=== PATIENT | male | born 1955 | race Caucasian/White ===

== ENCOUNTER 2016-06-22 12:56 | Observation (INO) | payer MEDICARE ==
[2016-06-22] VITALS (7 sets, daily range): BP systolic 146–173; BP diastolic 64–76; PULSE 58–80; RESP 12–18; TEMP 97.5–98.7; O2SAT 90–99
[~2016-06-22] VITALS: Ht 180.3 cm; Wt 70.0 kg
[~2016-06-22 12:56] MED LIST: AMLO5TAB96 PO; FOLI1 PO; LOSA50TA PO; MORP60TA PO; SIMV20 PO; TEST200I13 IM; VITA100020 IM
[2016-06-22 13:33] LABS: MEAN CORPUSCULAR HGB CONC 29.1 % (32.0-36.0)
--- NOTE | 2016-06-22 13:42 | PD ---
HPI Chief Complaint: Abnormal Results Time Seen by Provider: 13:38 Travel History International Travel<30 days: No Contact w/Intl Traveler<30days: No Traveled to known affect area: No History of Present Illness HPI Patient comes in at the advice of his primary care doctor after having found abnormal lab results that were drawn yesterday. Patient reports received a phone call from his doctor today stating that his hemoglobin was 5.9 and to come to the emergency Department. Patient states he has a history of chronic anemia and was taking iron tablets for this but has not took any for couple weeks with exception of taking one yesterday. Patient states had a colonoscopy done by Dr. Buckner 2 weeks ago and was not told anything was abnormal. Patient states this was just a routine colonoscopy secondary to his Crohn's. Patient reports over the past 3+ months he's had intermittent dizziness, shortness breath, weakness in his legs that is unchanged. He states he was instructed by his primary care doctor today to stop taking his methotrexate which patient reports he only takes 2-3 times a week anyway. Patient denies any hematemesis, bright red blood per rectum, melena, or being on any blood thinners. PFSH Past Medical History Arthritis: Yes Depression: Yes Cancer: No Cardiovascular Problems: No Diabetes: No Diminished Hearing: No Endocrine: No Gastrointestinal Disorders: Yes (CROHN'S DISEASE) Genitourinary: Yes (FREQUENT KIDNEY STONES) Hepatitis: No Hiatal Hernia: No Hypertension: Yes Immune Disorder: No Kidney Stones: Yes Musculoskeletal: Yes (ARTHRITIS, BACK, NECK) Neurologic: No Psychiatric: No Respiratory: No Thyroid Disease: No Past Surgical History Abdominal Surgery: Yes (CROHN'S DISEASE WITH RESECTION X 2, ADHESION REMOVAL) Body Medical Devices: BACK WITH CAGE Eye Surgery: Yes (RIGHT EYE CATARACT SX, LEFT EYE REMOVED) Thoracic Surgery: Yes (L4 TO S1 FUSION 2000) Other Surgery: Yes (LEFT EYE SURGERY 1968) Social History Alcohol Use: No Tobacco Use: Yes ( SMOKE A PACK A DAY) Substance Use: No Allergies-Medications (Allergen,Severity, Reaction): Coded Allergies: No Known Allergies (Verified , 06/22/16) Reported Meds & Prescriptions Reported Meds & Active Scripts Active Reported Folate (Folic Acid) 1 Mg Tab 1 Mg PO DAILY Cyanocobalamin Inj (Cyanocobalamin) 1,000 Mcg/Ml Inj 1,000 Mcg IM Q30D Testosterone Cypionate Inj (Testosterone Cypionate) 200 Mg/Ml Inj 200 Mg IM Q14D Probiotic (Lactobacillus Acidophilus) 1 Cap Cap 1 Cap PO DAILY Vitamin D3 (Cholecalciferol) 2,000 Unit Tab 2,000 Units PO DAILY Losartan (Losartan Potassium) 50 Mg Tab 50 Mg PO DAILY Morphine ER (Morphine Sulfate) 60 Mg Tab 60 Mg PO QID Norvasc (Amlodipine Besylate) 10 Mg Tab 10 Mg PO DAILY Zocor (Simvastatin) 20 Mg Tab 20 Mg PO HS Review of Systems Except as stated in HPI: all other systems reviewed are Neg Physical Exam Narrative GENERAL: Well-developed, under nourished, in no acute distress, and non-ill appearing. SKIN: Warm and dry. HEAD: Atraumatic. Normocephalic. EYES: Pupils equal and round. EOMI. No scleral icterus. No injection or drainage. ENT: No nasal bleeding or discharge. Mucous membranes pink and moist. NECK: Trachea midline. Supple. No nuclear rigidity. CARDIOVASCULAR: Regular rate and rhythm. No murmur appreciated. RESPIRATORY: No accessory muscle use. No respiratory distress. Clear to auscultation. Breath sounds equal bilaterally. GASTROINTESTINAL: Abdomen soft, non-tender, nondistended. Hepatic and splenic margins not palpable. Normal bowel sounds 4. No pulsatile mass. MUSCULOSKELETAL: No obvious deformities. No clubbing. No cyanosis. No edema. Full range of motion. NEUROLOGICAL: Awake and alert. No obvious cranial nerve deficits. Motor grossly within normal limits. Normal speech. PSYCHIATRIC: Appropriate mood and affect; insight and judgment normal. Data Data Last Documented VS Vital Signs Date Time Temp Pulse Resp B/P Pulse Ox O2 Delivery O2 Flow Rate FiO2 06/22/16 13:20 80 18 97 Room Air 06/22/16 13:20 161/69 06/22/16 12:58 97.5 Orders Complete Blood Count With Diff (06/22/16 13:31) Comprehensive Metabolic Panel (06/22/16 13:31) Prothrombin Time / Inr (Pt) (06/22/16 13:31) Act Partial Throm Time (Ptt) (06/22/16 13:31) Type And Screen (06/22/16 13:31) Ecg Monitoring (06/22/16 13:31) Iv Access Insert/Monitor (06/22/16 13:31) Oximetry (06/22/16 13:31) Sodium Chloride 0.9% Flush (Ns Flush) (06/22/16 13:45) Red Blood Cells (Rbc) (06/22/16 14:48) Sodium Chloride 0.9% Flush (Ns Flush) (06/22/16 15:00) Labs Laboratory Tests Test 06/22/16 06/22/16 13:50 15:10 White Blood Count 6.2 TH/MM3 Red Blood Count 2.97 MIL/MM3 Hemoglobin 5.8 GM/DL Hematocrit 20.0 % Mean Corpuscular Volume 67.3 FL Mean Corpuscular Hemoglobin 19.6 PG Mean Corpuscular Hemoglobin 29.1 % Concent Red Cell Distribution Width 19.6 % Platelet Count 227 TH/MM3 Mean Platelet Volume 9.5 FL Neutrophils (%) (Auto) 79.3 % Lymphocytes (%) (Auto) 11.4 % Monocytes (%) (Auto) 6.2 % Eosinophils (%) (Auto) 2.5 % Basophils (%) (Auto) 0.6 % Neutrophils # (Auto) 4.9 TH/MM3 Lymphocytes # (Auto) 0.7 TH/MM3 Monocytes # (Auto) 0.4 TH/MM3 Eosinophils # (Auto) 0.2 TH/MM3 Basophils # (Auto) 0.0 TH/MM3 CBC Comment AUTO DIFF Prothrombin Time 11.2 SEC Prothromb Time International 1.0 RATIO Ratio Activated Partial 23.9 SEC Thromboplast Time Sodium Level 140 MEQ/L Potassium Level 4.3 MEQ/L Chloride Level 107 MEQ/L Carbon Dioxide Level 27.0 MEQ/L Anion Gap 6 MEQ/L Blood Urea Nitrogen 19 MG/DL Creatinine 1.55 MG/DL Estimat Glomerular Filtration 46 ML/MIN Rate Random Glucose 99 MG/DL Calcium Level 7.8 MG/DL Total Bilirubin 0.1 MG/DL Aspartate Amino Transf 15 U/L (AST/SGOT) Alanine Aminotransferase 22 U/L (ALT/SGPT) Alkaline Phosphatase 81 U/L Total Protein 5.8 GM/DL Albumin 2.9 GM/DL Blood Type O NEGATIVE Antibody Screen NEGATIVE Crossmatch Leukocyte-Reduced Red Blood Cells Blood Bank Comment MDM Medical Decision Making Medical Screen Exam Complete: Yes Emergency Medical Condition: Yes Differential Diagnosis Severe anemia, anemia, GI bleed, electrolyte abnormality, other Narrative Course Patient seen and examined. Initial laboratory studies were obtained and reviewed. Patient was transfused with 2 units of packed red blood cells. Discussed all findings and plan of care with Dr. Mendez, who is in agreement with plan of care and disposition. Discussed all findings and plan of care with patient and his . Patient was agreeable for admission. All questions were answered. Procedures Procedure Narrative Verbal consent was obtained. Digital rectal exam was performed. Stool specimen applied and test interpreted between 1 and 3 minutes of application and the result was positive. Internal Controls: Both positive and negative controls were validated. is project manager Mariana was present during this exam. Physician Communication Physician Communication [id number] Montgomery, who is agreeable to admit the patient. Diagnosis Primary Impression: Severe anemia Additional Impression: Guaiac + stool Admitting Information Admitting Physician Requests: Admit Condition: Stable Juanito العلي Jun 22, 2016 13:42
[2016-06-22] MEDS ORDERED: SODIUM CHLORIDE 0.9% FLUSH 5 ML FLUSH IVF PRN ×2 (13:45→15:00)
[2016-06-22 14:22] LABS: AUTOMATED NEUTROPHIL # 4.9 TH/MM3 (1.8-7.7); BASOPHIL % 0.6 % (0.0-2.0); EOSINOPHIL # 0.2 TH/MM3 (0-0.4); EOSINOPHIL % 2.5 % (0.0-4.0); LYMPH % 11.4 % (9.0-44.0); LYMPHOCYTE # 0.7 TH/MM3 (1.0-4.8); MEAN CELL VOLUME 67.3 FL (80.0-100.0); MEAN CORPUSCULAR HEMOGLOBIN 19.6 PG (27.0-34.0); MONO % 6.2 % (0.0-8.0); NEUT % 79.3 % (16.0-70.0); PLATELET COUNT 227 TH/MM3 (150-450); RED BLOOD COUNT 2.97 MIL/MM3 (4.50-5.90); RED CELL DISTRIBUTION WIDTH 19.6 % (11.6-17.2); WHITE BLOOD COUNT 6.2 TH/MM3 (4.0-11.0)
[2016-06-22] MEDS ORDERED: MORP1TAB26 PO (14:29)
[2016-06-22] MEDS ORDERED: AMLO10 PO (14:29)
[2016-06-22] MEDS ORDERED: LACTCAP8 PO (14:29)
[2016-06-22] MEDS ORDERED: ZOCO20TA PO (14:29)
[2016-06-22] MEDS ORDERED: VITA200012 PO (14:29)
[2016-06-22] MEDS ORDERED: FOLI1TAB4 PO (14:29)
[2016-06-22] MEDS ORDERED: CYAN1000P IM (14:29)
[2016-06-22] MEDS ORDERED: TEST200I12 IM (14:29)
[2016-06-22] MEDS ORDERED: LOSA50TA PO (14:29)
[2016-06-22 14:30] LABS: HEMO FLAGS AUTO DIFF
[2016-06-22 14:33] LABS: APTT (PATIENT) 23.9 SEC (24.3-30.1); PROTHROMBIN TIME - PATIENT 11.2 SEC (9.8-11.6)
[2016-06-22 14:42] LABS: ALT (GPT) 22 U/L (12-78); ANION GAP 6 MEQ/L (5-15); AST (GOT) 15 U/L (15-37); BLOOD UREA NITROGEN 19 MG/DL (7-18); CHLORIDE 107 MEQ/L (98-107); GLOMERULAR FILTRATION RATE 46 ML/MIN (>89); POTASSIUM 4.3 MEQ/L (3.5-5.1); SODIUM (NA) 140 MEQ/L (136-145)
[2016-06-22 14:44] LABS: ALKALINE PHOSPHATASE 81 U/L (45-117); TOTAL BILIRUBIN ADULT 0.1 MG/DL (0.2-1.0)
[2016-06-22] MEDS ORDERED: METH2.5T PO (15:34)
[2016-06-22] MEDS ORDERED: UMEC1AER INH (15:34)
[2016-06-22 15:36] LABS: SCAN/DIFF AUTO DIFF CONFIRMED; STOMATOCYTES 1+ (NORMAL); TEARDROP RBCS 1+ (NORMAL)
[2016-06-22] MEDS ORDERED: FERR325T PO (15:54)
[2016-06-22] MEDS ORDERED: MORPHINE SULFATE 60 MG CONTROLLED RELEASE TAB PO PRN (16:00)
--- NOTE | 2016-06-22 16:08 | HHI.HP ---
HPI Service [facility] Hospitalists Primary Care Physician Susan Singleton Jr, MD Admission Diagnosis severe anemia, guaiac positive stool Chief Complaint: Anemia Travel History International Travel<30 Days: No Contact w/Intl Traveler <30 Da: No Traveled to Known Affected Are: No History of Present Illness Mr. Salas is a pleasant 60 y/o male with chronic iron deficiency anemia, Crohn's disease, RA on Methotrexate, HTN, and hyperlipidemia. Pt was recommended to come to the ER at [facility] for evaluation of acute on chronic anemia. Pt had labs drawn yesterday and was reportedly called by his PCP office and instructed to go to the ER for further workup as his Hgb had decreased to 5.8. Repeat labs in the ED confirmed Hgb 5.8/Hct 20.2, MCV 67.3, MCH 19.6. Patient states he has a history of chronic anemia and was taking iron tablets which he reportedly started taking around 3 months ago. He states that it was making him nauseated and he stopped taking this a few couple weeks with exception of taking one yesterday. Previous outpt labs in 02/2016 with Hgb 10.0/Hct 33, MCV 87, MCH 26. Hgb has been consistently between 8-10 for the last year. Patient had a Colonoscopy on 06/07/[address] Buckner which was negative, no active colitis and no polyps noted. He reports over the past 3+ months he's had intermittent dizziness, shortness breath with exertion, weakness that is unchanged. He states he was instructed by his primary care doctor today to hold his methotrexate. He was noted to be guaiac positive in the ER but he denies any bright red blood per rectum, melena, or hematemesis. His last EGD was in 2011 and noted duodenitis otherwise negative. Pt reports that he is chronically bloated and gassy and has loose stools since his last colon surgery in 2014. He reports that he takes Ibuprofen 2-3 tablets once per day, 3-5 times per week for many years. Denies any alcohol use. Denies any anticoagulant or antiplatelet use. Review of Systems Constitutional: COMPLAINS OF: Dizziness, DENIES: Fever, Chills Eyes: DENIES: Vision loss Ears, nose, mouth, throat: DENIES: Hearing loss Respiratory: DENIES: Cough Cardiovascular: COMPLAINS OF: Dyspnea on Exertion Gastrointestinal: COMPLAINS OF: Diarrhea, DENIES: Abdominal pain, Black stools , Bloody stools, Nausea, Vomiting Integumentary: DENIES: Rash Past Family Social History Past Medical History Iron deficiency anemia Ankylosing spondylitis B12 deficiency BPH Crohn's disease with hx of colovesicular fistula in 1988 s/p resection and repeat surgical resection in 1998 and hx of ileocolonic stricture s/p surgery in 2014 Nephrolithiasis CKD, stage 3 Chronic back pain HTN Hyperlipidemia Depression Narcolepsy Nicotine dependence COPD Rheumatoid arthritis Traumatic blindness with prosthetic eye Past Surgical History Exploratory laparotomy with extensive COLBY, resection of ileocolonic anastomosis and formation of new ileocolostomy on 12/02/[address] Buckner. Cystoscopy with left double J stent placement on 12/02/[address] Nicole Lumbar laminectomy Laparotomy with COLBY with widening of the ileocolonic stricture on 08/21/[address] Benson Right hemicolectomy in 1998 Left eye orbital implant Bladder surgery Thyroid biopsy Reported Medications -Methotrexate 17.5 Mg PO Q7D -Anoro Ellipta Inh 62.5-25 Mcg/Act Aero 1 Puff INH DAILY -Folate 1 Mg PO DAILY -Cyanocobalamin Inj 1,000 Mcg IM Q30D -Testosterone Cypionate Inj 200 Mg IM Q14D -Probiotic 1 Cap PO DAILY -Vitamin D3 2,000 Units PO DAILY -Losartan 50 Mg PO DAILY -Morphine ER 60 Mg PO QID PRN -Norvasc 10 Mg PO DAILY -Zocor 20 Mg PO HS Allergies: Coded Allergies: No Known Allergies (Verified , 06/22/16) Family History Noncontributory Social History (+)Hx of tobacco use Denies any alcohol or illicit drug use Pt lives locally with his . Physical Exam Vital Signs Vital Signs Date Time Temp Pulse Resp B/P Pulse Ox O2 Delivery O2 Flow Rate FiO2 06/22/16 13:20 80 18 97 Room Air 06/22/16 13:20 80 18 161/69 97 Room Air 06/22/16 12:58 97.5 80 12 170/76 90 Room Air Physical Exam GENERAL: This is a well-nourished, well-developed patient, in no apparent distress. HEENT: Atraumatic. Normocephalic. No temporal or scalp tenderness. No scleral icterus. Airway patent. NECK: Trachea midline, supple, nontender. CARDIO: Regular. RESP: CTA bilaterally. No wheezes, rales, or rhonchi. ABD: +BS, soft, non-tender, nondistended. EXT: Extremities without clubbing, cyanosis, or edema. NEURO: Awake and alert. Motor and sensory grossly within normal limits. Normal speech. Laboratory Laboratory Tests Test 06/22/16 06/22/16 13:50 15:10 White Blood Count 6.2 Red Blood Count 2.97 Hemoglobin 5.8 Hematocrit 20.0 Mean Corpuscular Volume 67.3 Mean Corpuscular Hemoglobin 19.6 Mean Corpuscular Hemoglobin 29.1 Concent Red Cell Distribution Width 19.6 Platelet Count 227 Mean Platelet Volume 9.5 Neutrophils (%) (Auto) 79.3 Lymphocytes (%) (Auto) 11.4 Monocytes (%) (Auto) 6.2 Eosinophils (%) (Auto) 2.5 Basophils (%) (Auto) 0.6 Neutrophils # (Auto) 4.9 Lymphocytes # (Auto) 0.7 Monocytes # (Auto) 0.4 Eosinophils # (Auto) 0.2 Basophils # (Auto) 0.0 CBC Comment AUTO DIFF Prothrombin Time 11.2 Prothromb Time International 1.0 Ratio Activated Partial 23.9 Thromboplast Time Sodium Level 140 Potassium Level 4.3 Chloride Level 107 Carbon Dioxide Level 27.0 Anion Gap 6 Blood Urea Nitrogen 19 Creatinine 1.55 Estimat Glomerular Filtration 46 Rate Random Glucose 99 Calcium Level 7.8 Total Bilirubin 0.1 Aspartate Amino Transf 15 (AST/SGOT) Alanine Aminotransferase 22 (ALT/SGPT) Alkaline Phosphatase 81 Total Protein 5.8 Albumin 2.9 Blood Type O NEGATIVE Antibody Screen NEGATIVE Crossmatch Leukocyte-Reduced Red Blood Cells Blood Bank Comment Result Diagram: 06/22/16 1350 06/22/16 1350 Septic Shock Reassessment Heart: Regular rate and rhythm Lungs: Clear Skin: Warm Peripheral Pulses: Bounding Right Radial Bounding Left Radial Bounding Right Popliteal Bounding Left Popliteal Bounding Right Dorsalis Pedis Bounding Left Dorsalis Pedis Bounding Right Posterior Tibial Bounding Left Posterior Tibial Assessment and Plan Problem List: (1) Severe anemia Status: Acute Plan: - Pt admitted with acute on chronic anemia with Hgb 5.8/Hct 20 at admission, likely multifactorial - Pt with known hx of iron deficiency and has been off his iron supplements - Pt also noted to be guaiac positive but no noted active GIB. He had a colonoscopy on 06/07/[address] Buckner was negative, no active colitis and no polyps noted. - Pt also with chronic renal insufficiency with a baseline creatinine around 1.4 - Check iron indices prior to transfusion - Pt planned for transfusion with 2 units PRBCs - Pt may need iron transfusion - Monitor H/H - PPI - Pt does take Ibuprofen fairly regularly - Consult GI - Supportive care - DVT prophylaxis (2) Rheumatoid arthritis Status: Chronic Plan: - Pt is on Methotrexate and Morphine QID chronically - Hold Methotrexate (3) HTN (hypertension) Status: Chronic Plan: - Cont. home meds (4) Hyperlipidemia Status: Chronic Plan: - Cont. home meds (5) COPD (chronic obstructive pulmonary disease) Status: Chronic Plan: - Duonebs PRN - Resume home meds (6) Crohns disease Status: Chronic Assessment and Plan Patient examined. Assessment and plan formulated with Africa Wolff PA-C. I agree with the above. symptomatic acute blood loss anemia/iron def. guiac positive. chrons dz s;p right hemicolectomy. recent c-scope negative for bleed. b12 def and also on mtx for RA. uses nsaids frequently gi consult for egd. blood transfusion and iron infusion. Africa Wolff Jun 22, 2016 16:08 Domenic Richardson MD Jun 22, 2016 17:27
[2016-06-22] MEDS ORDERED: ACETAMINOPHEN 325 MG TAB PO PRN (16:15)
[2016-06-22 16:16] LABS: TRANSFERRIN IRON PROFILE 343 MG/DL (200-360)
[2016-06-22 16:19] LABS: FERRITIN 28 NG/ML (26-388)
[2016-06-22] MEDS ORDERED: RESP: ALBUTEROL 2.5 MG/IPRATROPIUM 0.5 MG NEB (PRN) NEB (16:30)
[2016-06-22] MEDS ORDERED: SODIUM CHLOR 0.9% 250 ML INJ 250 ML IV ONE (16:45)
[2016-06-22] MEDS ORDERED: ONDANSETRON HCL 4 MG/2 ML VIAL IV PRN (17:00)
[2016-06-22] MEDS ORDERED: PANTOPRAZOLE SODIUM 40 MG VIAL IV PUSH SCH (17:00)
--- NOTE | 2016-06-22 18:13 | PD.CONS ---
HPI History of Present Illness This is a 60 year old male with a hx of chronic iron deficiency anemia, Crohn's disease, RA on Methotrexate, who was sent to the ER for evaluation of acute on chronic anemia. He had labs drawn yesterday and was called by his primary care and instructed to go to the ER for further evaluation. He has a hx of Crohn's, diagnosed in 1998. He reports that he has been on methotrexate for his RA and not any other meds for his Crohns. He just recently had a colonoscopy on with Dr. Buckner which was negative, no active colitis and no polyps noted. He has had 3 bowel resections for his Crohns, with the last one being about 1 year ago. He reports that since that time, he has had abdominal bloating and diarrhea with 3-8 loose stools per day. He has tried imodium, but states it has not helped with the diarrhea. He has not seen any blood or mucous in his stools. He also has intermittent nausea/vomiting with clear emesis. He has had some generalized weakness and intermittent dizzines over the past few months. He last had an EGD in 2011 and noted duodenitis otherwise negative. He does take Ibuprofen 2 pills about 1-2x a day for joint and back pain. He does not drink. (Moni Orosco) PFSH Past Medical History Iron deficiency anemia Ankylosing spondylitis B12 deficiency BPH Crohn's disease with hx of colovesicular fistula in 1988 s/p resection and repeat surgical resection in 1998 and hx of ileocolonic stricture s/p surgery in 2014 Nephrolithiasis CKD, stage 3 Chronic back pain HTN Hyperlipidemia Depression Narcolepsy Nicotine dependence COPD Rheumatoid arthritis Traumatic blindness with prosthetic eye Past Surgical History Exploratory laparotomy with extensive COLBY, resection of ileocolonic anastomosis and formation of new ileocolostomy on 12/02/[address] Buckner. Cystoscopy with left double J stent placement on 12/02/[address] Nicole Lumbar laminectomy Laparotomy with COLBY with widening of the ileocolonic stricture on 08/21/[address] Benson Right hemicolectomy in 1998 Left eye orbital implant Bladder surgery Thyroid biopsy (Moni Orosco) Coded Allergies: No Known Allergies (Verified , 06/22/16) Medications Allergies Coded Allergies Type Severity Reaction Last Updated Verified No Known Allergies 06/22/16 Yes Active Scripts Medications Dose Route/Sig Days Date Category Ferrous Sulfate 325 Mg Tab 325 Mg PO BID 06/22/16 Reported Methotrexate 2.5 Mg Tab 17.5 Mg PO Q7D 06/22/16 Reported Anoro Ellipta Inh (Umeclidinium/Vilanterol) 62.5-25 Mcg/Act Aero 1 Puff INH DAILY 06/22/16 Reported Folate (Folic Acid) 1 Mg Tab 1 Mg PO DAILY 06/22/16 Reported Cyanocobalamin Inj (Cyanocobalamin) 1,000 Mcg/Ml Inj 1,000 Mcg IM Q30D 06/22/16 Reported Testosterone Cypionate Inj (Testosterone Cypionate) 200 Mg/Ml Inj 200 Mg IM Q14D 06/22/16 Reported Probiotic (Lactobacillus Acidophilus) 1 Cap Cap 1 Cap PO DAILY 06/22/16 Reported Vitamin D3 (Cholecalciferol) 2,000 Unit Tab 2,000 Units PO DAILY 06/22/16 Reported Losartan (Losartan Potassium) 50 Mg Tab 50 Mg PO DAILY 06/22/16 Reported Morphine ER (Morphine Sulfate) 60 Mg Tab 60 Mg PO QID PRN 06/22/16 Reported Norvasc (Amlodipine Besylate) 10 Mg Tab 10 Mg PO DAILY 06/22/16 Reported Zocor (Simvastatin) 20 Mg Tab 20 Mg PO HS 06/22/16 Reported Family History Mother just recently passed from metastatic cancer, unknown primary Social History (+)Hx of tobacco use Denies any alcohol or illicit drug use Pt lives locally with his . (Moni Orosco) Review of Systems Constitutional: COMPLAINS OF: Fatigue, Dizziness, DENIES: Fever Respiratory: DENIES: Cough Cardiovascular: DENIES: Chest pain Gastrointestinal: COMPLAINS OF: Diarrhea, Nausea, Vomiting, Swelling of Abdomen , DENIES: Abdominal pain, Black stools, Bloody stools, Constipation, Heartburn Musculoskeletal: COMPLAINS OF: Joint pain, Back pain Integumentary: DENIES: Abnormal pigmentation Hematologic/lymphatic: DENIES: Bruising Neurologic: DENIES: Headache Psychiatric: DENIES: Confusion (Moni Orosco) GI Exam Vitals I&O Vital Signs Date Time Temp Pulse Resp B/P Pulse Ox O2 Delivery O2 Flow Rate FiO2 06/22/16 16:20 98.0 58 16 146/68 97 Room Air 06/22/16 16:05 97.6 68 16 157/64 98 Room Air 06/22/16 16:05 66 16 157/64 98 Room Air 06/22/16 13:20 80 18 97 Room Air 06/22/16 13:20 80 18 161/69 97 Room Air 06/22/16 12:58 97.5 80 12 170/76 90 Room Air Laboratory Test 06/22/16 06/22/16 13:50 15:10 White Blood Count 6.2 TH/MM3 Red Blood Count 2.97 MIL/MM3 Hemoglobin 5.8 GM/DL Hematocrit 20.0 % Mean Corpuscular Volume 67.3 FL Mean Corpuscular Hemoglobin 19.6 PG Mean Corpuscular Hemoglobin 29.1 % Concent Red Cell Distribution Width 19.6 % Platelet Count 227 TH/MM3 Mean Platelet Volume 9.5 FL Neutrophils (%) (Auto) 79.3 % Lymphocytes (%) (Auto) 11.4 % Monocytes (%) (Auto) 6.2 % Eosinophils (%) (Auto) 2.5 % Basophils (%) (Auto) 0.6 % Neutrophils # (Auto) 4.9 TH/MM3 Lymphocytes # (Auto) 0.7 TH/MM3 Monocytes # (Auto) 0.4 TH/MM3 Eosinophils # (Auto) 0.2 TH/MM3 Basophils # (Auto) 0.0 TH/MM3 CBC Comment AUTO DIFF Differential Comment AUTO DIFF CONFIRMED Tear Drop Cells 1+ Stomatocytes 1+ Prothrombin Time 11.2 SEC Prothromb Time International 1.0 RATIO Ratio Activated Partial 23.9 SEC Thromboplast Time Sodium Level 140 MEQ/L Potassium Level 4.3 MEQ/L Chloride Level 107 MEQ/L Carbon Dioxide Level 27.0 MEQ/L Anion Gap 6 MEQ/L Blood Urea Nitrogen 19 MG/DL Creatinine 1.55 MG/DL Estimat Glomerular Filtration 46 ML/MIN Rate Random Glucose 99 MG/DL Calcium Level 7.8 MG/DL Iron Level 23 MCG/DL Total Iron Binding Capacity 480 MCG/DL Percent Iron Saturation 4.8 % Ferritin 28 NG/ML Total Bilirubin 0.1 MG/DL Aspartate Amino Transf 15 U/L (AST/SGOT) Alanine Aminotransferase 22 U/L (ALT/SGPT) Alkaline Phosphatase 81 U/L Total Protein 5.8 GM/DL Albumin 2.9 GM/DL Vitamin B12 Level 396 PG/ML Folate 15.4 NG/ML Blood Type O NEGATIVE Antibody Screen NEGATIVE Crossmatch Leukocyte-Reduced Red Blood Cells Blood Bank Comment Physical Examination HEENT: Normocephalic; atraumatic; no jaundice. CHEST: Chest is clear to auscultation and percussion. CARDIAC: RRR ABDOMEN: Soft, nondistended, nontender; no hepatosplenomegaly; bowel sounds are present in all four quadrants. EXTREMITIES: No clubbing, cyanosis, or edema. SKIN: Normal; no rash; no jaundice. SKIDDER LEVER OPERATOR: No focal deficits; alert and oriented times three. (Moni Orosco) Assessment and Plan Plan ASSESSMENT: - Severe anemia, acute. Pt with hx of iron deficiency anemia. Colonoscopy on with Dr. Buckner which was negative, no active colitis and no polyps noted. EGD in 2011 and noted duodenitis otherwise negative. Has chronic anemia, but sent for drop in hgb. He reports abdominal bloating, nausea, vomiting. Also some diarrhea, but that is more chronic since his last surgery. (+) Ibuprofen use. HH 5.8/20.0. Getting blood transfusion. Will plan for egd in am. - Bloating, nausea, vomiting. PPI. EGD in am. - Chronic diarrhea. Pt reports 3-8 loose stools since his last surgery. Has tried imodium, no relief. Recent colonoscopy with no active colitis. - Crohns. Pt dx 1998. S/P 3 bowel resections/surgeries. Last colonoscopy 06/[address] Buckner which was negative, no active colitis and no polyps noted. PLAN: - Plan for egd in am - Obtain consents - NPO after MN - Clear liquids - Protonix - Monitor HH - Transfuse as necessary - Supportive care - Further recommendations to follow based on results of above - Pt seen and examined by Dr. Coon and myself and this note is written on his behalf (Moni Orosco) Physician Comments Seen and examined with Ms. Ana Luisa JARVIS, recent colonoscopy reported as normal. EGD planned. If -ve SBFT.No active bleeding. Will follow, thank you (Jesi Coon MD) Mnoi Orosco Jun 22, 2016 18:13 Jesi Coon MD Jun 23, 2016 16:30
[2016-06-22] MEDS: IRON SUCROSE INJ 200 MG in SODIUM CHLORIDE 0.9% INJ 100 ML IV SCH (19:35)
[2016-06-22] MEDS ORDERED: NON-FORMULARY DRUG (Simvastatin (Zocor) 20 MG) PO SCH (21:00)
[2016-06-22] MEDS ORDERED: LOSARTAN 50 MG TAB PO SCH (21:00)
[2016-06-22] MEDS ORDERED: PRAVASTATIN SOD 40 MG TAB PO SCH (21:00)
[2016-06-22] MEDS: MORPHINE SULFATE 60 MG CONTROLLED RELEASE TAB PO PRN (23:36)
[2016-06-23] VITALS (7 sets, daily range): BP systolic 124–178; BP diastolic 63–87; PULSE 54–77; RESP 16–21; TEMP 97.4–98.7; O2SAT 97–100
[2016-06-23 08:20] LABS: AUTOMATED NEUTROPHIL # 7.6 TH/MM3 (1.8-7.7); BASOPHIL % 0.5 % (0.0-2.0); EOSINOPHIL # 0.2 TH/MM3 (0-0.4); HEMATOCRIT 27.6 % (39.0-51.0); LYMPH % 8.3 % (9.0-44.0); LYMPHOCYTE # 0.8 TH/MM3 (1.0-4.8); MEAN CELL VOLUME 70.9 FL (80.0-100.0); MEAN CORPUSCULAR HEMOGLOBIN 21.6 PG (27.0-34.0); MEAN CORPUSCULAR HGB CONC 30.4 % (32.0-36.0); MONO % 6.9 % (0.0-8.0); NEUT % 82.3 % (16.0-70.0); PLATELET COUNT 223 TH/MM3 (150-450); RED BLOOD COUNT 3.89 MIL/MM3 (4.50-5.90); RED CELL DISTRIBUTION WIDTH 21.3 % (11.6-17.2); WHITE BLOOD COUNT 9.2 TH/MM3 (4.0-11.0)
[2016-06-23 08:24] LABS: HEMO FLAGS AUTO DIFF
[2016-06-23 08:38] LABS: BICARBONATE 28.7 MEQ/L (21.0-32.0); MAGNESIUM 1.9 MG/DL (1.5-2.5); POTASSIUM 3.9 MEQ/L (3.5-5.1)
[2016-06-23] MEDS ORDERED: NICOTINE 14 MG/24 HR PATCH TD SCH (09:00)
[2016-06-23] MEDS ORDERED: UMECLIDINIUM 62.5 MCG/VILANTEROL 25 MCG INHALER INH SCH (09:00)
[2016-06-23] MEDS ORDERED: LOSARTAN 50 MG TAB PO SCH (09:00)
[2016-06-23] MEDS: IRON SUCROSE INJ 200 MG in SODIUM CHLORIDE 0.9% INJ 100 ML IV SCH (09:13)
[2016-06-23] MEDS: MORPHINE SULFATE 60 MG CONTROLLED RELEASE TAB PO PRN (09:13)
[2016-06-23 09:15] LABS: KERATOCYTES OCC (NORMAL); SCAN/DIFF AUTO DIFF CONFIRMED
--- NOTE | 2016-06-23 09:52 | HHI.PR ---
Subjective Remarks Patient is overall feeling better today since the blood transfusion. He is planned for an EGD today Objective Vitals Vital Signs Date Time Temp Pulse Resp B/P Pulse Ox O2 Delivery O2 Flow Rate FiO2 06/23/16 08:00 97.4 60 20 141/67 98 06/23/16 04:39 98.4 64 21 134/63 98 06/23/16 00:48 20 06/23/16 00:27 98.7 77 21 178/78 100 06/22/16 19:19 69 15 96 Room Air 06/22/16 19:18 98.7 69 15 173/73 96 Room Air 06/22/16 18:50 98.3 67 18 166/69 99 Room Air 06/22/16 18:15 62 16 150/68 98 Room Air 06/22/16 16:20 98.0 58 16 146/68 97 Room Air 06/22/16 16:05 97.6 68 16 157/64 98 Room Air 06/22/16 16:05 66 16 157/64 98 Room Air 06/22/16 13:20 80 18 97 Room Air 06/22/16 13:20 80 18 161/69 97 Room Air 06/22/16 12:58 97.5 80 12 170/76 90 Room Air 06/22/16 06/22/16 06/23/16 15:00 23:00 07:00 Intake Total 500 ml Balance 500 ml Intake Packed Cells 500 ml Result Diagram: 06/23/16 0758 06/23/16 0750 Other Results Laboratory Tests Test 06/22/16 06/22/16 06/23/16 06/23/16 13:50 15:10 07:50 07:58 White Blood Count 6.2 TH/MM3 9.2 TH/MM3 Red Blood Count 2.97 MIL/MM3 3.89 MIL/MM3 Hemoglobin 5.8 GM/DL 8.4 GM/DL Hematocrit 20.0 % 27.6 % Mean Corpuscular Volume 67.3 FL 70.9 FL Mean Corpuscular Hemoglobin 19.6 PG 21.6 PG Mean Corpuscular Hemoglobin 29.1 % 30.4 % Concent Red Cell Distribution Width 19.6 % 21.3 % Platelet Count 227 TH/MM3 223 TH/MM3 Mean Platelet Volume 9.5 FL 9.5 FL Neutrophils (%) (Auto) 79.3 % 82.3 % Lymphocytes (%) (Auto) 11.4 % 8.3 % Monocytes (%) (Auto) 6.2 % 6.9 % Eosinophils (%) (Auto) 2.5 % 2.0 % Basophils (%) (Auto) 0.6 % 0.5 % Neutrophils # (Auto) 4.9 TH/MM3 7.6 TH/MM3 Lymphocytes # (Auto) 0.7 TH/MM3 0.8 TH/MM3 Monocytes # (Auto) 0.4 TH/MM3 0.6 TH/MM3 Eosinophils # (Auto) 0.2 TH/MM3 0.2 TH/MM3 Basophils # (Auto) 0.0 TH/MM3 0.0 TH/MM3 CBC Comment AUTO DIFF AUTO DIFF Differential Comment AUTO DIFF AUTO DIFF CONFIRMED CONFIRMED Tear Drop Cells 1+ Stomatocytes 1+ Prothrombin Time 11.2 SEC Prothromb Time International 1.0 RATIO Ratio Activated Partial 23.9 SEC Thromboplast Time Sodium Level 140 MEQ/L 140 MEQ/L Potassium Level 4.3 MEQ/L 3.9 MEQ/L Chloride Level 107 MEQ/L 106 MEQ/L Carbon Dioxide Level 27.0 MEQ/L 28.7 MEQ/L Anion Gap 6 MEQ/L 5 MEQ/L Blood Urea Nitrogen 19 MG/DL 14 MG/DL Creatinine 1.55 MG/DL 1.37 MG/DL Estimat Glomerular Filtration 46 ML/MIN 53 ML/MIN Rate Random Glucose 99 MG/DL 94 MG/DL Calcium Level 7.8 MG/DL 7.9 MG/DL Iron Level 23 MCG/DL Total Iron Binding Capacity 480 MCG/DL Percent Iron Saturation 4.8 % Ferritin 28 NG/ML Total Bilirubin 0.1 MG/DL Aspartate Amino Transf 15 U/L (AST/SGOT) Alanine Aminotransferase 22 U/L (ALT/SGPT) Alkaline Phosphatase 81 U/L Total Protein 5.8 GM/DL Albumin 2.9 GM/DL Vitamin B12 Level 396 PG/ML Folate 15.4 NG/ML Blood Type O NEGATIVE Antibody Screen NEGATIVE Crossmatch Leukocyte-Reduced Red Blood Cells Blood Bank Comment Magnesium Level 1.9 MG/DL Keratocytes OCC Objective Remarks General: NAD, AAOx3 Chest: CTA Cardiac: Regular Abd: +BS, soft ND/NT Ext: No edema A/P Problem List: (1) Severe anemia Status: Acute Plan: - Pt admitted with acute on chronic anemia with Hgb 5.8/Hct 20 at admission, likely multifactorial - Pt with known hx of iron deficiency and has been off his iron supplements - Pt also noted to be guaiac positive but no noted active GIB. He had a colonoscopy on 06/07/[address] Buckner was negative, no active colitis and no polyps noted. - Pt also with chronic renal insufficiency with a baseline creatinine around 1.4 - Iron indices indicate iron deficiency. B12 and Folate levels are stable. - Pt s/p transfusion with 2 units PRBCs on 06/22. Repeat H/H today is 8.4/27.6 - Cont. with IV Venofer - Monitor H/H - PPI - Pt does take Ibuprofen fairly regularly - Appreciate GI consultation and pt is planned for EGD today. - Supportive care - DVT prophylaxis (2) Rheumatoid arthritis Status: Chronic Plan: - Pt is on Methotrexate and Morphine QID chronically - Hold Methotrexate (3) HTN (hypertension) Status: Chronic Plan: - Cont. home meds (4) Hyperlipidemia Status: Chronic Plan: - Cont. home meds (5) COPD (chronic obstructive pulmonary disease) Status: Chronic Plan: - Duonebs PRN - Resume home meds (6) Crohns disease Status: Chronic Assessment and Plan Patient examined. Assessment and plan formulated with Africa Wolff PA-C. I agree with the above. symptomatic acute blood loss iron def anemia. heme positive. ?related to po iron. ?malabsorption. egd just mild duodenal inflammation. unable to tolerate po iron. s/p 2 units blood and 2 bags iron. called pcp. would recommend iv iron infusions at the [facility] and monitor. pt agrees. f/u GI. refused sbft. Africa Wolff Jun 23, 2016 09:52 Domenic Richardson MD Jun 23, 2016 14:00
[2016-06-23] MEDS ORDERED: MAGNESIUM CITRATE SOLN 300 ML BTL PO ONE ×2 (12:00→18:00)
[2016-06-23] MEDS ORDERED: PROPOFOL 200 MG/20 ML AMP IV ONE (12:01)
--- NOTE | 2016-06-23 13:55 | HHI.DCPOC ---
Discharge Care Plan Diagnosis: (1) Severe anemia (2) Guaiac + stool (3) HTN (hypertension) (4) Hyperlipidemia (5) COPD (chronic obstructive pulmonary disease) (6) Crohns disease (7) Rheumatoid arthritis Goals to Promote Your Health * To prevent worsening of your condition and complications - Pt is to followup with Dr. Kendrick in 1 week - Pt will followup with the [facility] for IV Iron infusions. This was relayed to his PCP who will place the orders for the IV iron to referrals. - Pt is to followup with GI in 2 weeks, call for an appt. This is to followup on his biopsy results from his upper endoscopy. Directions to Meet Your Goals Take your medications as prescribed Follow your dietary instruction Follow activity as directed Keep your appointments as scheduled Take your immunizations and boosters as scheduled If your symptoms worsen call your PCP, if no PCP go to Urgent Care Center or Emergency Room Smoking is Dangerous to Your Health. Avoid second hand smoke Call the 24-hour hour crisis hotline for domestic abuse at Africa Wolff Jun 23, 2016 13:55
[2016-06-23] MEDS ORDERED: PROT40TA PO (13:56)
[2016-06-23] MEDS ORDERED: BISACODYL EC 5 MG TABEC PO SCH (18:00)
[2016-06-23] MEDS ORDERED: REMOVE OLD NICODERM (NICOTINE) PATCH TD SCH (21:00)
== END 2016-06-23 14:36 | disposition home or self-care (01) ==
LOC: NEPC 12:56 → NEDA 15:22 → INTOOBSV 15:22 → NEDH 19:40 → NEPHCDU 06-23 00:05
PROVIDERS: ADMIT Hospitalist; ATTEND Hospitalist
DX: D50.9 Iron deficiency anemia, unspecified (principal); K29.80 Duodenitis without bleeding; K50.90 Crohn's disease, unspecified, without complications; I12.9 Hypertensive chronic kidney disease with stage 1 through stage 4 chronic kidney disease, or unspecified chronic kidney disease; N18.3 Chronic kidney disease, stage 3 (moderate); J44.9 Chronic obstructive pulmonary disease, unspecified; E78.5 Hyperlipidemia, unspecified; M06.9 Rheumatoid arthritis, unspecified; G47.419 Narcolepsy without cataplexy; H54.0 Blindness, both eyes; M45.9 Ankylosing spondylitis of unspecified sites in spine; N40.0 Benign prostatic hyperplasia without lower urinary tract symptoms; F17.210 Nicotine dependence, cigarettes, uncomplicated; Z87.442 Personal history of urinary calculi; Z90.49 Acquired absence of other specified parts of digestive tract; Z97.0 Presence of artificial eye
CPT/HCPCS: 00740; 36430; 43239; 80048; 80053; 82607; 82728; 82746; 83540; 83550; 83735; 85025; 85610; 85730; 86850; 86900; 86901; 86920; 88305; 99284; C9113; G0378; J1756; J7050; P9016